=== PATIENT | female | born 2005 | race Caucasian/White ===

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

== ENCOUNTER 2023-07-11 12:41 | Outpatient (CLI) | payer MEDICAID, SELFPAY ==
--- NOTE | 2023-07-11 12:46 | XRR_ITS ---
PROCEDURE INFORMATION: Exam: XR Lumbosacral Spine Exam date and time: 07/11/2023 1:02 PM Age: 18 years old Clinical indication: Dorslagia and low back pain; Additional info: M54.9 - dorsalgia, unspecified TECHNIQUE: Imaging protocol: Radiologic exam of the lumbosacral spine. Views: 2 or 3 views. COMPARISON: No relevant prior studies available. FINDINGS: Bones/joints: Prominent lumbar scoliosis is noted with convexity to the right side. Degree of angulation is 19 degrees between L1 and L4. No arthritic changes noted. No fracture or subluxation. Soft tissues: Unremarkable. XR/XR lumbar spine 2-3V* [id number] IMPRESSION: Scoliosis as detailed above
== END 2023-07-11 12:42 | disposition home or self-care (01) ==
LOC: RAD 12:42
PROVIDERS: PCP Nurse Practitioner Family; Visit Provider Nurse Practitioner Family
DX: M54.50 Low back pain, unspecified (principal); M41.86 Other forms of scoliosis, lumbar region
CPT/HCPCS: 72100

== ENCOUNTER 2023-10-02 12:22 | Outpatient (RCR) | payer OTHER, SELFPAY | END 2023-10-30 23:59 | disposition home or self-care (01) | LOC: SPT 12:22 | PROVIDERS: PCP Nurse Practitioner Family; Visit Provider Nurse Practitioner Family | DX: M41.9 Scoliosis, unspecified (principal) | CPT/HCPCS: 97161 ==

== ENCOUNTER → 2024-06-04 14:02 | Outpatient (BNVA) | payer SELFPAY | PROVIDERS: PCP Nurse Practitioner Family; Visit Provider Nurse Practitioner Psychiatric/Mental Health | DX: Z79.899 Other long term (current) drug therapy (principal) | CPT/HCPCS: 80053; 80061; 83036 ==

== ENCOUNTER → 2024-07-22 11:27 | Outpatient (BNVA) | payer OTHER, SELFPAY | PROVIDERS: PCP Nurse Practitioner Family; Visit Provider Nurse Practitioner Family | DX: N92.6 Irregular menstruation, unspecified (principal); R53.83 Other fatigue; I10 Essential (primary) hypertension; Z72.0 Tobacco use | CPT/HCPCS: 80053; 84439; 84443; 85025 ==

== ENCOUNTER → 2024-07-29 15:48 | Outpatient (BNVA) | payer OTHER, SELFPAY | PROVIDERS: PCP Nurse Practitioner Family; Visit Provider Nurse Practitioner Family | DX: Z01.419 Encounter for gynecological examination (general) (routine) without abnormal findings (principal) | CPT/HCPCS: 87070; 87205; 88175 ==